=== PATIENT | female | born 1995 | race Caucasian/White ===

== ENCOUNTER 2017-11-28 00:38 | Inpatient (IN) | payer SELFPAY, OTHER ==
[2017-11-28] MEDS: LACTATED RINGER'S 1000 ML IV (02:04)
[2017-11-28] MEDS: PENICILLIN G POTASSIUM IV 5 MU in D5W MINI-BAG PLUS 100 ML IV (02:07)
[2017-11-28 02:37] LABS: HEMATOCRIT 31.5 % (36.0-47.0); MEAN CORPUSCULAR HEMOGLOBIN 24.8 pg (27.0-33.0); MEAN CORPUSCULAR HGB CONC 31.7 g/dl (32.0-36.5); PLATELET COUNT, AUTOMATED 282 10^3/uL (150-450); RED BLOOD COUNT 4.04 10^6/uL (4.00-5.40); RED CELL DISTRIBUTION WIDTH 14.7 % (11.5-14.5); WHITE BLOOD COUNT 10.2 10^3/uL (4.0-10.0)
[2017-11-28] MEDS: LR 1,000 ML IV ×2 (02:37→07:44)
[2017-11-28] MEDS ORDERED: FENTANYL 2MCG/ML ROPIVACAINE 0.2% IN 0.9% NACL 200ML IVBAG As Ordered (02:59)
[2017-11-28] MEDS ORDERED: REFRIGERATOR IV KEYS XX (03:30)
[2017-11-28] MEDS ORDERED: LACTATED RINGER'S 1000 ML IV (03:30)
[2017-11-28] MEDS ORDERED: EPIDURAL COMMENT XX (03:30)
[2017-11-28] MEDS ORDERED: diphenhydrAMINE INJ 50MG/ML VIAL (J1200) IV (03:30)
[2017-11-28] MEDS ORDERED: ePHEDrine SULFATE 25 MG/5 ML(5MG/ML) SYRINGE IV (03:30)
[2017-11-28] MEDS ORDERED: NALOXONE INJ 0.4 MG/1 ML VIAL (J2310) IV (03:30)
[2017-11-28] MEDS ORDERED: EPIDURAL/PCA KEYS XX (03:30)
[2017-11-28 04:02] LABS: HBSAG L&D NEGATIVE (NEGATIVE)
[2017-11-28] MEDS: PENICILLIN G POTASSIUM IV 2.5 MU in APPROPRIATE DILUENT 1 EA IV ×3 (06:06→14:00)
[2017-11-28] MEDS: FENTANYL/ROPIVACAINE/NACL BAG 200 ML EPIDURAL (06:44)
[2017-11-28] MEDS ORDERED: OXYTOCIN 30 UNITS IN 0.9% NaCl 500ML IV BAG (J2590) As Ordered (08:29)
[2017-11-28] MEDS: ONDANSETRON 4MG/2ML VIAL (J2405) IV (08:38)
[2017-11-28] MEDS: OXYTOCIN DRIP 30 UNITS in APPROPRIATE DILUENT 1 EA IV (09:38)
[2017-11-28] MEDS: OXYTOCIN INJ 10 UNITS/ML VIAL (J2590) IV (09:38)
[2017-11-28] MEDS ORDERED: DIBUCAINE 1% OINTMENT 30GM TOP (10:00)
[2017-11-28] MEDS ORDERED: DOCUSATE SODIUM 100 MG CAP PO (10:00)
[2017-11-28] MEDS ORDERED: RHOGAM 300 MCG (1500 IU) INJ (J2790) IM (10:00)
[2017-11-28] MEDS ORDERED: MOM 30ML SUSPENSION UDC PO (10:00)
[2017-11-28] MEDS ORDERED: MEASLES,MUMPS,RUBELLA VACCINE INJ (MMR-II) (90707) SC (10:00)
[2017-11-28] MEDS ORDERED: METHYLERGONOVINE MALEATE 0.2 MG TAB PO (10:00)
[2017-11-28] MEDS: IBUPROFEN 800 MG TAB PO ×2 (10:17→20:46)
[2017-11-28 12:17] LABS: BEDSIDE GLUCOSE 51 MG/DL (70-105)
[2017-11-28] MEDS: ACETAMINOPHEN 500 MG TAB PO (16:42)
[2017-11-28] MEDS: PRENATAL VITAMINS CHEWABLE TABLET PO (16:43)
[2017-11-29] MEDS: PRENATAL VITAMINS CHEWABLE TABLET PO (08:37)
== END 2017-11-29 15:00 | disposition home or self-care (01) | DRG 560 ==
LOC: M LDO 00:38 → M LDI 01:33 → M OBS 17:00
PROVIDERS: Obstetrics & Gynecology
PROC: 10E0XZZ Delivery of Products of Conception, External Approach (ICD-10-PCS; principal; 2017-11-28)
PROC: 0HQ9XZZ Repair Perineum Skin, External Approach (ICD-10-PCS; 2017-11-28)
DX: O70.0 First degree perineal laceration during delivery (principal); O99.820 Streptococcus B carrier state complicating pregnancy; Z37.0 Single live birth; Z3A.39 39 weeks gestation of pregnancy

== ENCOUNTER 2018-06-24 17:22 | Emergency (ER) | payer OTHER ==
[~2018-06-24] VITALS: Ht 154.9 cm; Wt 54.5 kg
[~2018-06-24 17:22] MED LIST: COLA100C5 PO; IBUP-1114 PO; MAPA500T17 PO; MOM30SS PO; NUPE1OIN2 TOP; PRENTAB9 PO
[2018-06-24] MEDS ORDERED: KETOROLAC 30 MG/ML VIAL (J1885) IV ONE (19:00)
[2018-06-24] MEDS ORDERED: ONDANSETRON 4MG/2ML VIAL (J2405) IV ONE (19:00)
[2018-06-24] MEDS ORDERED: NS 1,000 ML IV ONE (19:00)
[2018-06-24 19:42] LABS: BASO % 0.5 % (0.0-1.0); EOS % 0.5 % (0.0-3.0); HEMATOCRIT 37.3 % (36.0-47.0); LYMPH # 0.7 10^3/uL (1.5-6.5); LYMPH % 12.5 % (24.0-44.0); MEAN CORPUSCULAR HEMOGLOBIN 26.2 pg (27.0-33.0); MEAN CORPUSCULAR HGB CONC 32.2 g/dl (32.0-36.5); MEAN CORPUSCULAR VOLUME 81.4 fl (80.0-96.0); MONO # 0.5 10^3/uL (0.0-0.8); MONO % 8.5 % (0.0-5.0); NEUTROPHILS # 4.6 10^3/uL (1.8-7.7); NEUTROPHILS % 77.8 % (36.0-66.0); PLATELET COUNT, AUTOMATED 185 10^3/uL (150-450); RED BLOOD COUNT 4.58 10^6/uL (4.00-5.40); WHITE BLOOD COUNT 5.9 10^3/uL (4.0-10.0)
--- NOTE | 2018-06-24 19:57 | REP ---
Clinical: Cough and fever . Comparison: None . Technique: PA and lateral. Findings: The mediastinum and cardiac silhouette are normal. The lung kevin are clear and without acute consolidation, effusion, or pneumothorax. The skeletal structures are intact and normal. Impression: 1. No acute cardiopulmonary process. Electronically Signed by Cameron Castano MD 06/24/2018 07:49 P
[2018-06-24 20:00] LABS: ALBUMIN 4.3 GM/DL (3.2-5.2); ALT/SGPT 23 U/L (12-78); BILIRUBIN,DIRECT 0.1 MG/DL (0.0-0.2); BILIRUBIN,TOTAL 0.3 MG/DL (0.2-1.0); BLOOD UREA NITROGEN 10 MG/DL (7-18); CALCIUM LEVEL 8.3 MG/DL (8.5-10.1); CARBON DIOXIDE LEVEL 26 MEQ/L (21-32); CHLORIDE LEVEL 102 MEQ/L (98-107); GLOMERULAR FILTRATION RATE > 60.0 (>60); GLUCOSE, FASTING 95 MG/DL (70-100); LIPASE 78 U/L (73-393); POTASSIUM SERUM 3.4 MEQ/L (3.5-5.1); SODIUM LEVEL 135 MEQ/L (136-145); TOTAL PROTEIN 8.4 GM/DL (6.4-8.2)
[2018-06-24 20:10] LABS: INFLUENZA A AMPLIFICATION NEGATIVE (NEGATIVE); INFLUENZA B AMPLIFICATION NEGATIVE (NEGATIVE)
[2018-06-24 20:48] LABS: MONO SCRN NEGATIVE (NEGATIVE)
[2018-06-24] MEDS ORDERED: AMOX500C PO (21:05)
[2018-06-24] MEDS ORDERED: LIDO1SOL7 PO (21:05)
[2018-06-24] MEDS ORDERED: AMOXICILLIN 500 MG CAP PO ONE (21:15)
[2018-06-24 21:16] VITALS: BP 104/55
[2018-06-27 00:08] LABS: HSV-1 DNA Negative (Negative); HSV-2 DNA Negative (Negative)
== END 2018-06-24 21:30 | disposition home or self-care (01) ==
LOC: M ED 17:22
DX: J02.9 Acute pharyngitis, unspecified (principal); R50.9 Fever, unspecified; M79.10 Myalgia, unspecified site; R10.13 Epigastric pain; R11.0 Nausea
CPT/HCPCS: 71046; 80048; 80076; 83690; 85025; 86308; 86780; 87502; 87529; 87806; 87880; 96374; 96375; 99284; J1885; J2405

== ENCOUNTER → 2019-04-22 | Outpatient (REF) | payer OTHER ==
[~2019-04-22] MED LIST changes: +AMOX500C PO; +LIDO1SOL8 PO; -MAPA500T17 PO; +MAPA500T2 PO
[2019-04-28 00:07] LABS: HSV TYPE I IgM AB <1:10 titer (<1:10); HSV TYPE II IgM ABY <1:10 titer (<1:10)
== END ==
LOC: M SFHCLERA 14:02
PROVIDERS: ATTEND Physician Assistant
DX: B00.2 Herpesviral gingivostomatitis and pharyngotonsillitis (principal)
CPT/HCPCS: 86695; 86696; 87252; G0463

== ENCOUNTER 2019-09-06 08:07 | Outpatient (CLI) | payer OTHER ==
[~2019-09-06] VITALS: Ht 154.9 cm; Wt 71.7 kg
[~2019-09-06 08:07] MED LIST changes: -LIDO1SOL8 PO; +LIDO2SOL17 PO
[2019-09-06 08:28] VITALS: BP 123/65
[2019-09-06 10:04] VITALS: BP 112/62
[2019-09-06] MEDS ORDERED: miSOPROStol 50 MCG 1/2 TAB (S0191) PO ONE (10:30)
--- NOTE | 2019-09-06 21:41 | HPE ---
DATE OF ADMISSION: 09/06/2019 A 23-year-old 3, para 2, last menstrual period (LMP), 11/12/2018, estimated date of confinement (EDC) 09/13/2019 at 39 weeks of gestation with a history of nausea, vomiting, diarrhea times 24 hours. Her has the same issue, and he is in the emergency room at the present time for a gastrointestinal (GI) workup. She also is complaining of some contractions while she has the nausea and vomiting, but since being here in the triage she has had no nausea, vomiting, or diarrhea. Her risk factors are that she has the history of large for gestational age, 9 pounds 11 ounces times two. She is Rh negative. Presently dehydrated and has a GI upset. PAST HISTORY: In December 2014 had term spontaneous vaginal delivery, 9 pounds 11 ounces. October 2017 and 39 weeks had spontaneous vaginal delivery, 9 pounds 11 ounces. LABORATORY DATA: A negative, HIV negative, hepatitis negative, RPR negative, rubella immune, Varicella immune. Pap shows ASCUS. HPV positive. Urine was negative. Gonorrhea and chlamydia are negative. One-hour glucose 87. GBS is negative. Presently, her blood pressure is 112/62, respirations 18, pulse 100, temperature 98.5. Urine is 1010, pH 7, +1 ketones, small amount. While here, again, no diarrhea, nausea, vomiting. We did order a GI panel for Clostridium (C) difficile; however, she has not been able to produce any. Her symphysis fundus height is 38, vertex presenting. No contractions. Category 1 strip. Moderate variability. Accelerations were noted. No decelerations. On examination, no vaginal bleeding or loss. Cervix is posterior, multiparous os, 50% effaced, -3 station. Her skin turgor is appropriate. Her mucous membranes are dry. We encouraged her to drink. She did have 700 mL of ice water and seemed to keep it down with no GI issues. We gave her precautions regarding home handwashing and wearing a mask if going into public places related to the GI issue. Also, contractions 5-7 minutes apart, breathing through them, to return for premature rupture of membranes, bleeding, or decreased movement of less than 10 movements in 24 hours. The patient expressed understanding of the instructions and was discharged undelivered to keep her appointment on 09/10/2019.
== END 2019-09-06 10:19 | disposition home or self-care (01) ==
LOC: M LDO 08:07
PROVIDERS: ATTEND Obstetrics & Gynecology
DX: O99.283 Endocrine, nutritional and metabolic diseases complicating pregnancy, third trimester (principal); E86.0 Dehydration; O21.8 Other vomiting complicating pregnancy; Z3A.39 39 weeks gestation of pregnancy; O26.893 Other specified pregnancy related conditions, third trimester; R19.7 Diarrhea, unspecified; Z79.899 Other long term (current) drug therapy
CPT/HCPCS: 59025; G0378; G0463

== ENCOUNTER 2019-09-07 11:55 | Inpatient (IN) | payer OTHER ==
[~2019-09-07] VITALS: Ht 154.9 cm; Wt 69.6 kg
[2019-09-07 12:16] VITALS: BP 113/59
[2019-09-07] MEDS ORDERED: LACTATED RINGER'S 1000 ML IV STA (12:57)
[2019-09-07] MEDS ORDERED: OXYTOCIN 30 UNITS IN 0.9% NaCl 500ML IV BAG (J2590) As Ordered ONE (13:02)
[2019-09-07 13:25] VITALS: BP 139/71
[2019-09-07] MEDS ORDERED: IBUPROFEN 600 MG TAB PO PRN (13:30)
[2019-09-07] MEDS ORDERED: DIBUCAINE 1% OINTMENT 30GM TOP PRN (13:30)
[2019-09-07] MEDS ORDERED: ACETAMINOPHEN 500 MG TAB PO PRN (13:30)
[2019-09-07] MEDS ORDERED: ACETAMINOPHEN TAB 650MG DOSE (2X325MG) PO PRN (13:30)
[2019-09-07] MEDS ORDERED: DOCUSATE SODIUM 100 MG CAP PO PRN (13:30)
--- NOTE | 2019-09-07 13:31 | DNPDOC ---
[facility] Delivery Note Delivery Note DATE OF DELIVERY: 07 September 2019 PREDELIVERY DIAGNOSIS: 39w1d gestation and labor. POST DELIVERY DIAGNOSIS: Delivered. PROCEDURE: Spontaneous vaginal delivery TURNER OFF: Dr. Genia Mcginnis MD ANESTHESIA: none ESTIMATED BLOOD LOSS: 200 mL. FINDINGS: 8 pound 11 ounce (3930g) female , Score 8/9 DELIVERY SUMMARY: Alyssa is a 24yo [id number] s/p uncomplicated at 1311 on 09/07/2019 after presenting in active labor at 39w1d. She was 9cm on presentation, had AROM with light meconium and began pushing immediately when C/C/0. Infant rotated and then head delivered OA, restituted ROBBY. Left anterior shoulder delivered followed by posterior shoulder and corpus. Infant was vigorous with spontaneous cry, placed on maternal abdomen and cord was clamped x2 and cut by patient after approximately 2 minutes. Infant's nose and mouth were suctioned with bulb suction. Apgars 8/9. With traction on the umbilical cord and uterine massage, carmita lacaddison delivered spontaneously and intact with 3 vessel centrally inserted cord. IV Pitocin given per protocol. More uterine massage was performed and fundus was then firm at u-2cm. Inspection of perineum and vagina revealed small rosa-urethral abrasion with no bleeding. All counts correct x2. Mom and infant were doing well when I left the room. MD Ras Reid Katrina D MD Sep 07, 2019 13:31
[2019-09-07 13:33] LABS: HEMATOCRIT 34.9 % (36.0-47.0); HEMOGLOBIN 10.9 g/dl (12.0-15.5); MEAN CORPUSCULAR HEMOGLOBIN 24.9 pg (27.0-33.0); MEAN CORPUSCULAR HGB CONC 31.2 g/dl (32.0-36.5); MEAN CORPUSCULAR VOLUME 79.9 fl (80.0-96.0); PLATELET COUNT, AUTOMATED 354 10^3/uL (150-450); RED BLOOD COUNT 4.37 10^6/uL (4.00-5.40); WHITE BLOOD COUNT 10.3 10^3/uL (4.0-10.0)
[2019-09-07] MEDS: IBUPROFEN 800 MG TAB PO PRN ×2 (13:37→23:46)
[2019-09-07 13:40] VITALS: BP 146/75
--- NOTE | 2019-09-07 13:43 | HPEPDOC ---
Obstetrical History & Physical General Date of Admission Sep 07, 2019 at 12:52 History of Present Illness Alyssa is a 24yo with SIUP at 39w1d by 9wk u/s presenting with ctx that started earlier this morning and have become stronger and closer together, q3- 5min. No LOF. No vaginal bleeding. Good movement. No f/c/n/v/CP/SOB. 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 ABDOMEN: Gravid and non-tender to touch. FETUS: Is vertex (VTX) by sterile vaginal examination (SVE) EXTREMITIES: No edema Vital Signs/I&O Vital Signs Date Time Temp Pulse Resp B/P (MAP) Pulse Ox O2 Delivery O2 Flow Rate FiO2 09/07/19 12:16 98.8 81 18 113/59 (77) Laboratory Data 24H LABS Laboratory Tests 2 09/07/19 12:55: 09/07/19 12:57: Serology Scanned Report Hepatitis B Testing CBC/BMP Pertinent Laboratoy Data Blood Type: A- RBC Antibody Screen: Negative HIV: Negative Hepatitis B: Negative Hepatitis C: Unknown Rapid Plasma Reagin: Nonreactive Rubella: Immune Varicella: Immune Chlamydia/Gonorrhea: Negative Group B Streptococcus: Negative Glucose Tolerance Test: 87 Anatomy Ultrasound Ultrasound Date: Apr 24, 2019 Placenta Location: Anterior Normal Anatomy: Yes Placenta Previa: No Steroid Therapy Steroid Therapy: No Vaginal Examination Dilation: 9 cm Effacement: 100% Station: -1, 0 Cervical Consistency: Soft Cervical Position: Middle Presentation: Cephalic presentation Assessment Heart Rate (FHR): 135 Variability: Moderate Accelerations: Positive Decelerations: None Tocometer Contractions: Yes Frequency: regular, every 2-5 min. Duration: greater than 60 seconds Strength: palpated as strong Assessment/Plan Assessment Alyssa is a 24yo with SIUP at 39w1d by 9wk u/s in active labor SCE 9/C/-1 with membranes intact, ctx q3-5min. Cat I FHRT. Vitals wnl, benign exam. GBS negative. Cephalic by SCE. Benign PMhx, proven to [id number]. Plan Admit and orient. Analytics Manager and consent. Diet: clear liquids Group B Streptococcus (GBS) negative Labs and intravenous (IV) per unit protocol. Lactated Ringers (LR): 125 mL/hr. Anticipate normal spontaneous delivery () MD Ras Reid Katrina D MD Sep 07, 2019 13:43
[2019-09-07 13:55] VITALS: BP 129/72
[2019-09-07] MEDS ORDERED: OXYTOCIN DRIP 30 UNITS in IV 1 EA IV SCH (14:00)
[2019-09-07] MEDS ORDERED: RHOGAM 300 MCG (1500 IU) INJ (J2790) IM SCH (14:00)
[2019-09-07] MEDS ORDERED: MEASLES,MUMPS,RUBELLA VACCINE INJ (MMR-II) (90707) SC SCH (14:00)
[2019-09-07 15:40] VITALS: BP 118/59
[2019-09-07 18:00] VITALS: BP 108/55
[2019-09-08 06:00] VITALS: BP 114/59
[2019-09-08] MEDS: LR 1,000 ML IV SCH ×2 (06:00→14:00)
[2019-09-08] MEDS: IBUPROFEN 800 MG TAB PO PRN (08:26)
[2019-09-08] MEDS ORDERED: PRENATAL VITAMINS CHEWABLE TABLET PO SCH (09:00)
--- NOTE | 2019-09-08 09:48 | IPNPDOC ---
Progress Note Date of Service: Sep 08, 2019 Day#: 1 Progress Note PPD 1 SUBJECT: Alyssa is a 24yo [id number] s/p uncomplicated at 1311 on 09/07/2019 after presenting in active labor at 39w1d, doing well day #1. She has been ambulating, voiding spontaneously without issue and tolerating regular diet. Breast feeding without issue. Reports lochia is like a normal period. No f/c/n/v/CP/SOB. Desires discharge today to be with her young children at home. OBJECTIVE: VITAL SIGNS: Within normal limits, afebrile. Alert and oriented times three. Abdomen: Fundus firm at U-2. Soft, NTTP. Extremities: no edema of BLE, no pain with palpation of calves ASSESSMENT: Alyssa is a 24yo [id number] s/p uncomplicated at 1311 on 09/07/2019 after presenting in active labor at 39w1d, doing well day #1. Vitals within normal limits, afebrile, hemodynamically stable with no evidence of infection. PLAN: 1. Discharge to home today. 2. Tylenol and Motrin for pain. 3. Encourage breast feeding and ambulation. 4. desires Mirena IUD for contraception 5. Routine PP visit in 6 weeks in clinic. 6. Discussed return precautions at length. Dr. Genia Mcginnis MD VS, I&O, 24H, Fishbone Vital Signs/I&O Vital Signs Date Time Temp Pulse Resp B/P (MAP) Pulse Ox O2 Delivery O2 Flow Rate FiO2 09/08/19 06:00 97.6 77 17 114/59 (77) 97 Room Air I&O- Last 24 Hours up to 6 AM 09/08/19 06:00 Intake Total 500 ml Output Total 200 ml Balance 300 ml Laboratory Data 24H LABS Laboratory Tests 2 09/07/19 12:55: Nucleated Red Blood Cells % (auto) 0.0, Syphilis Serology NONREACTIVE 09/07/19 12:57: Serology Scanned Report Hepatitis B Testing CBC/BMP Laboratory Tests 09/07/19 12:55 Genia Mcginnis MD Sep 08, 2019 09:48
[2019-09-08] MEDS ORDERED: ACET-683 PO (09:50)
[2019-09-08] MEDS ORDERED: IBUP80TA PO (09:50)
[2019-09-08] MEDS ORDERED: PRENCHW PO (09:50)
--- NOTE | 2019-09-08 09:53 | DS.PDOC ---
Discharge Summary General Date of Admission Sep 07, 2019 at 12:52 Date of Discharge Sep 08, 2019 Attending Physician: Genia Mcginnis MD Discharge Summary PROCEDURES PERFORMED DURING STAY: term spontaneous vaginal delivery ADMITTING DIAGNOSES: 1. Active labor at term DISCHARGE DIAGNOSES: 1. Active labor at term, delivered COMPLICATIONS/CHIEF COMPLAINT: LABOR. HISTORY OF PRESENT ILLNESS/HOSPITAL COURSE: Alyssa is a 24yo [id number] s/p uncomplicated at 1311 on 09/07/2019 after presenting in active labor at 39w1d, doing well day #1. She has had a benign course. At time of discharge, vitals were within normal limits, she was afebrile, hemodynamically stable with no evidence of infection. DISCHARGE MEDICATIONS: Please see below. ALLERGIES: Please see below. PHYSICAL EXAMINATION ON DISCHARGE: VITAL SIGNS: Within normal limits, afebrile. Alert and oriented times three. Abdomen: Fundus firm at U-2. Soft, NTTP. Extremities: no edema of BLE, no pain with palpation of calves LABORATORY DATA: Please see below. ACTIVITY: As tolerated, vaginal rest and no heavy lifting 6 weeks DIET: regular DISPOSITION: home DISCHARGE INSTRUCTIONS/PLAN: 1. Discharge to home today. 2. Tylenol and Motrin for pain. 3. Encourage breast feeding and ambulation. 4. desires Mirena IUD for contraception 5. Routine PP visit in 6 weeks in clinic. 6. Discussed return precautions at length. DISCHARGE CONDITION: Stable TIME SPENT ON DISCHARGE: Greater than [address] Genia Mcginnis MD Vital Signs/I&Os Vital Signs Date Time Temp Pulse Resp B/P (MAP) Pulse Ox O2 Delivery O2 Flow Rate FiO2 09/08/19 06:00 97.6 77 17 114/59 (77) 97 Room Air I&O- Last 24 Hours up to 6 AM 09/08/19 06:00 Intake Total 500 ml Output Total 200 ml Balance 300 ml Laboratory Data Labs 24H Laboratory Tests 2 09/07/19 12:55: Nucleated Red Blood Cells % (auto) 0.0, Syphilis Serology NONREACTIVE 09/07/19 12:57: Serology Scanned Report Hepatitis B Testing CBC/BMP Laboratory Tests 09/07/19 12:55 Discharge Medications Scheduled Pnv No.118/Iron Fumarate/FA ( 19 Chewable Tablet) 1 Each Tab.chew, 1 TAB PO DAILY Scheduled PRN Acetaminophen (Acetaminophen) 500 Mg Tablet, 1,000 MG PO Q6HP PRN for PAIN LEVEL 6-10 Ibuprofen (Ibuprofen) 800 Mg Tablet, 800 MG PO Q8HP PRN for PAIN LEVEL 6-10 Allergies Coded Allergies: No Known Allergies (Unverified , 11/28/17) Genia Mcginnis MD Sep 08, 2019 09:53
[2019-09-08 18:00] VITALS: BP 113/62
== END 2019-09-08 16:40 | disposition home or self-care (01) | DRG 807 ==
LOC: M LDO 11:55 → M LDI 12:52 → M OBS 15:40
PROVIDERS: ADMIT Obstetrics & Gynecology; ATTEND Obstetrics & Gynecology
PROC: 10E0XZZ Delivery of Products of Conception, External Approach (ICD-10-PCS; principal; 2019-09-07)
PROC: 10907ZC Drainage of Amniotic Fluid, Therapeutic from Products of Conception, Via Natural or Artificial Opening (ICD-10-PCS; 2019-09-07)
DX: O77.0 Labor and delivery complicated by meconium in amniotic fluid (principal); Z37.0 Single live birth; Z3A.39 39 weeks gestation of pregnancy